=== PATIENT | female | born 1950 | race Caucasian/White ===

== ENCOUNTER → 2016-11-02 | Outpatient (CLI) | payer MEDICARE, BC ==
[~2016-11-02] MED LIST: AZOR 5-40 MG1 UDTAB PO; BYSTOLIC; CARVEDILOL6.25 MG PO; CRESTOR PO; CRESTOR10 MG PO; DEMADEX10 MG PO; HYZAAR 100-25 T1 TAB PO; IMDUR-ER30 M1 PO; LEXAPRO PO; NEXIUM PO; TEKTURNA; VESICARE PO
--- NOTE | ~2016-11-02 | US136 ---
[facility] A Service of [facility] RADIOLOGY TEXT RESULTS PATIENT: BERE SEYMOUR LOCATION: CNIV : 48 UNIT #: [id number] AGE: [address]: Sonny Ford MD SEX: F ORDER DR: [id number] [facility] [address] [facility] [facility] [address] [facility]. [place], [place] [address] [id number] O MR#: [id number] Acc #: [id number] NAME: BERE SEYMOUR : 1950 SEX: F STUDY DATE/TIME: 11/02/2016 10:26 UNIT: CNIV ROOM: STUDY DESCRIPTION: U/L [facility] Art Study [facility] Attending Physician: Sonny Ford M.D. Referring Physician: Sonny Ford M.D. Ordering Physician: Sonny Ford M.D. Primary Care Physician: Sonny Ford M.D. MEDICAL IMAGING REPORT This report is preliminary unless electronic signature is present EXAM Bilateral lower extremity LEONARD, 11/02/2016 HISTORY Claudication FINDINGS The right brachial pressure is 133, left is 123. Right dorsalis pedis pressure is 139, posterior tibial is 144 for an LEONARD of 1.08 and a first toe pressure of 63 mmHg. Left dorsalis pedis pressure is 142 and posterior tibial is 146 for an LEONARD of 1.1 and a first toe pressure of 85 mmHg. PVR waveform at the ankle level are symmetric bilateral but slightly dampened. Arterial waveforms of the dorsalis pedis and posterior tibial arteries demonstrated triphasic waveforms in the right posterior tibial artery and dorsalis pedis artery and biphasic waveforms at the left dorsalis pedis and posterior tibial artery. IMPRESSION No arterial insufficiency in either the right or the left lower extremity based on ABIs and waveforms with adequate perfusion of the first toes. Dictated by... Agnieszka Sim M.D. THIS IS AN ELECTRONICALLY VERIFIED REPORT Agnieszka Sim M.D. at 11/10/2016 8:00 AM Chelle TD: 11/02/2016 20:42 JOB #: [id number] MEDICAL IMAGING REPORT [facility] A Service of [facility] RADIOLOGY TEXT RESULTS PATIENT: BERE SEYMOUR LOCATION: [facility] : 49 UNIT #: [id number] AGE: [address]: Sonny Ford MD SEX: F ORDER DR: Page 1 of 1 COPY
== END | disposition home or self-care (01) ==
LOC: CNIV 10:12
DX: I73.9 Peripheral vascular disease, unspecified (principal)
CPT/HCPCS: 93922